=== PATIENT | female | born 1965 | race African-American/Black ===

== ENCOUNTER 2016-04-27 08:41 | Emergency (ER) | payer OTHER ==
[2016-04-27 08:54] VITALS: BP 160/89; PULSE 80; TEMP 98.2; BMI 32.4
[2016-04-27] MEDS ORDERED: KETOROLAC TROMETHAMINE 60 MG/2 ML VIAL IM ONE (09:21)
[2016-04-27] MEDS ORDERED: CYCLOBENZAPRINE HCL 10 MG TABLET (FP) PO ONE (09:21)
[2016-04-27] MEDS ORDERED: KETOROLAC TROMETHAMINE 60 MG/2 ML VIAL ONE (09:23)
[2016-04-27] MEDS ORDERED: CYCLOBENZAPRINE HCL 10 MG TABLET (FP) ONE (09:24)
--- NOTE | 2016-04-27 09:25 | PDOC ---
History of Present Illness - General Chief Complaint: Injury Stated Complaint: FALL, BACK PAIN Time Seen by Provider: 04/27/16 09:05 History Source: Patient Exam Limitations: No Limitations - History of Present Illness Initial Comments: 04/27/16 09:20 , Slipped on the ice and fell onto her bottom, striking head the back of head but patient is wearing an especially large wig., states landed on primarily right side and is complaining of pain that extends from buttocks to right scapular area. Denies any bone tenderness, denies any knowledge of any deformities. Has taken no medication 04/27/16 14:59 Occurred: reports: just prior to arrival, this morning Severity: reports: mild, moderate Pain Location: reports: back, pelvis Method of Injury: Yes: fall Loss of Consciousness: no loss of consciousness Associated Symptoms (Fall): muscle spasms Past History - Travel Traveled outside of the country in the last 30 days: No Close contact w/someone who was outside of country & ill: No - Past Medical History Allergies/Adverse Reactions: Allergies Allergy/AdvReac Type Severity Reaction Status Date / Time metronidazole [From Flagyl] Allergy Verified 04/27/16 08:54 Home Medications: Ambulatory Orders Cyclobenzaprine HCl [Flexeril 10 mg] 10 mg PO BID PRN #14 tablet 04/27/16 Lisinopril/Hydrochlorothiazide [Lisinopril-Hctz 10-12.5 mg Tab] 12.5 mg PO DAILY 04/27/16 HTN: Yes - Psycho/Social/Smoking Cessation Hx Suicidal Ideation: No Smoking History: Never smoked Information on smoking cessation initiated: No Hx Alcohol Use: No Drug/Substance Use Hx: No Substance Use Type: None Trauma Specific PMHX - Complaint Specific PMHX Back Injury: Yes Neck Injury: Yes Review of Systems - Review of Systems Able to Perform ROS?: Yes Is the patient limited Nepalese proficient: Yes Constitutional: Yes: Symptoms Reported, See HPI, Malaise HEENTM: Yes: Symptoms Reported, See HPI, Other (tenderness to scalp but denies bleeding, mental status changes, drainage from nose or ears) Respiratory: No: Symptoms reported Musculoskeletal: Yes: Symptoms Reported, See HPI, Back Pain, Muscle Weakness, Neck Pain Integumentary: Yes: See HPI. No: Symptoms Reported Neurological: Yes: Symptoms reported, See HPI, Headache (mild) All Other Systems: Reviewed and Negative *Physical Exam - Vital Signs Last Vital Signs Temp Pulse Resp BP Pulse Ox 98.2 F 80 18 160/89 99 04/27/16 08:52 04/27/16 08:52 04/27/16 08:52 04/27/16 08:52 04/27/16 08:52 - Physical Exam General Appearance: Yes: Nourished, Appropriately Dressed, Apparent Distress, Mild Distress HEENT: positive: EOMI, HUA, Normal ENT Inspection, TMs Normal (no hemotympanum , no drainage from nose or ears, no evidence of skull fracture), Pharynx Normal Neck: positive: Tender, Supple Respiratory/Chest: positive: Lungs Clear, Normal Breath Sounds Extremity: positive: Normal Capillary Refill, Normal Inspection, Normal Range of Motion. negative: Tender (assist, bruising, hematomas noted to buttocks, right hip, or any extremity) Integumentary: positive: Normal Color, Dry, Warm. negative: Ecchymosis, Bruising Neurologic: positive: shipwright II-XII NML intact, Fully Oriented, Alert, Normal Mood/ Affect, Normal Response, Motor Strength 5/5 Progress Note - Progress Note Progress Note: Status post fall with mild whiplash injury. Patient has palpable spasm noted to the right side trapezius, and paravertebral lumbar spine muscles. Will treat with NSAIDs and cyclobenzaprine *DC/Admit/Observation/Transfer Diagnosis at time of Disposition: Multiple contusions Whiplash injuries Qualifiers: Encounter type: initial encounter Qualified Code(s): S13.4XXA - Sprain of ligaments of cervical spine, initial encounter - Discharge Dispostion Disposition: HOME Condition at time of disposition: Stable Admit: No - Prescriptions Prescriptions: Cyclobenzaprine HCl [Flexeril 10 mg] 10 mg PO BID PRN #14 tablet PRN Reason: spasm - Referrals Referrals: Beverly Salcedo NP [Primary Care Provider] - - Patient Instructions Printed Discharge Instructions: DI for Contusion, DI for Whiplash Additional Instructions: Rest, no heavy lifting or exercise until pain is resolved Hot soaks to neck and low back as often as possible/hot showers or Jacuzzis No massage or therapy until spasm is gone Continue ibuprofen 2-200 mg tablets every 6 hours for the next 3 days then as needed for pain and swelling Cyclobenzaprine 1-10mg every 8 hours as needed for spasm If not significant improvement within 24 hours with medication and rest regime, followup with private physician for change in medications and /or therapy. - Post Discharge Activity Work/School Note: Back to Work
== END 2016-04-27 09:32 | disposition home or self-care (01) ==
LOC: JERFT 08:41
PROC: 3E0233Z Introduction of Anti-inflammatory into Muscle, Percutaneous Approach (ICD-10-PCS; principal; 2016-04-27)
DX: S13.4XXA Sprain of ligaments of cervical spine, initial encounter (principal); S00.03XA Contusion of scalp, initial encounter; S30.0XXA Contusion of lower back and pelvis, initial encounter; S20.221A Contusion of right back wall of thorax, initial encounter; W00.0XXA Fall on same level due to ice and snow, initial encounter; Y93.01 Activity, walking, marching and hiking; Y92.488 Other paved roadways as the place of occurrence of the external cause
CPT/HCPCS: 99281-25

== ENCOUNTER 2023-11-25 06:00 | Day surgery (SDC) | payer OTHER ==
[2023-11-19 14:09] VITALS: BMI 44.6
[2023-11-25] MEDS ORDERED: SUCCINYLCHOLINE CHLORIDE 200 MG/10 ML SYRINGE ONE (06:57)
[2023-11-25] MEDS ORDERED: PROPOFOL 20 ML ONE (06:57)
[2023-11-25] MEDS ORDERED: MIDAZOLAM HCL 2 MG/2 ML SINGLE DOSE VIAL ONE (06:57)
[2023-11-25] MEDS ORDERED: EPINEPHrine 1:1,000 1,000 MCG/ML ML ONE (07:15)
[2023-11-25] MEDS ORDERED: BUPIVACAINE HCL/PF 0.25% (2.5MG/ML) 10 ML VIAL ONE (07:15)
[2023-11-25] MEDS ORDERED: oxyCODONE HCL 5 MG TABLET PO PRN (08:52)
[2023-11-25] MEDS ORDERED: FENTANYL CITRATE/PF 50 MCG/ML VIAL ONE ×3 (09:06→09:54)
[2023-11-25] MEDS ORDERED: ACETAMINOPHEN INJECTION 100 ML ONE (09:19)
[2023-11-25] MEDS: ACETAMINOPHEN 1000 MG/100 ML BAG IVPB ONE (09:20)
[2023-11-25] MEDS ORDERED: ACETAMINOPHEN 1000 MG/100 ML BAG IVPB ONE (11:59)
[2023-11-25 12:23] VITALS: BP 128/74; PULSE 71; RESP 18
[2023-11-25 12:25] VITALS: TEMP 97.7
== END 2023-11-25 11:25 | disposition home or self-care (01) ==
LOC: FASU 06:00
PROVIDERS: ATTEND Orthopaedic Surgery Sports Medicine
PROC: 0SCC4ZZ Extirpation of Matter from Right Knee Joint, Percutaneous Endoscopic Approach (ICD-10-PCS; 2023-11-25)
PROC: 0SBC4ZZ Excision of Right Knee Joint, Percutaneous Endoscopic Approach (ICD-10-PCS; 2023-11-25)
PROC: 0SBC4ZZ Excision of Right Knee Joint, Percutaneous Endoscopic Approach (ICD-10-PCS; 2023-11-25)
PROC: 0SBC4ZZ Excision of Right Knee Joint, Percutaneous Endoscopic Approach (ICD-10-PCS; principal; 2023-11-25 08:00)
PROC: 0SBC4ZZ Excision of Right Knee Joint, Percutaneous Endoscopic Approach (ICD-10-PCS; 2023-11-25 08:00)
DX: S83.241A Other tear of medial meniscus, current injury, right knee, initial encounter (principal); S83.281A Other tear of lateral meniscus, current injury, right knee, initial encounter; M67.51 Plica syndrome, right knee; M65.861 Other synovitis and tenosynovitis, right lower leg; M23.41 Loose body in knee, right knee; X58.XXXA Exposure to other specified factors, initial encounter; Y92.9 Unspecified place or not applicable; Y93.9 Activity, unspecified
CPT/HCPCS: 88304-TC; 88311-TC; 94760; J0131